=== PATIENT | male | born 1985 | race Caucasian/White ===

== ENCOUNTER 2023-11-22 18:18 | Emergency (ER) | payer OTHER ==
[~2023-11-22] VITALS: Ht 175.3 cm; Wt 63.5 kg
[2023-11-22 18:27] VITALS: O2SAT 98
[2023-11-22 18:49] VITALS: TEMP 98.3
[2023-11-22] MEDS: IBUPROFEN 400MG TABLET PO ONE (18:49)
[2023-11-22] MEDS: HYDROCODONE/ACETAMINOPHEN 5/325MG TABLET PO ONE (18:50)
[2023-11-22] MEDS ORDERED: HYDR-4001 MT (19:28)
[2023-11-22] MEDS ORDERED: IBUP-2028 MT (19:28)
[2023-11-22] MEDS ORDERED: DOCU-138 MT (19:41)
[2023-11-22 19:58] VITALS: BP 132/88; PULSE 78; RESP 14
== END 2023-11-22 20:20 | disposition home or self-care (01) ==
LOC: ER 18:18
DX: S42.031A Displaced fracture of lateral end of right clavicle, initial encounter for closed fracture (principal); Z98.890 Other specified postprocedural states; V00.131A Fall from skateboard, initial encounter; Y93.89 Activity, other specified; Y92.89 Other specified places as the place of occurrence of the external cause; Y99.8 Other external cause status
CPT/HCPCS: 73000; 73030; 29105; 99284; Z7610 ×2; L3670